=== PATIENT | male | born 1995 | race Caucasian/White ===

== ENCOUNTER 2019-10-04 16:07 | Emergency (ER) | payer OTHER ==
[2019-10-04] MEDS ORDERED: ACETAMINOPHEN 500 MG TAB ONE (16:32)
--- NOTE | 2019-10-04 17:18 | RAD REPORT ---
EXAM DESCRIPTION: RAD - Chest Single View - 10/04/2019 5:07 pm CLINICAL HISTORY: COUGH Chest pain. COMPARISON: No comparisons FINDINGS: Portable technique limits examination quality. The lungs are grossly clear. The heart is normal in size. No displaced fractures. IMPRESSION: No acute intrathoracic process suspected.
--- NOTE | 2019-10-04 17:21 | EDPHYS ---
Physician Documentation [facility] Name: Valente Tadeo Age: 23 yrs Sex: Male : 1995 Arrival Date: 10/04/2019 Time: 16:12 Bed 12 Private MD: ED Physician Morro Barragan HPI: 10/04 17:42 This 23 yrs old Male presents to ER via Ambulatory with complaints of Flu kdr Symptoms. 17:42 The patient or guardian reports cough, that is intermittent, described as mild, with kdr productive sputum, that is green. Onset: The symptoms/episode began/occurred gradually, 1 week(s) ago. Severity of symptoms: At their worst the symptoms were mild, in the emergency department the symptoms are unchanged. Modifying factors: The symptoms are alleviated by nothing, the symptoms are aggravated by nothing. Associated signs and symptoms: Pertinent positives: fever, Pertinent negatives: chest pain, diarrhea, nausea, rhinorrhea, sore throat, vomiting. The patient has not experienced similar symptoms in the past. The patient has been recently seen by a physician: Was seen at the [facility] last week and diagnosed with Flu - started on Tamiflu. continues to have fevers. Historical: - Allergies: 16:31 No Known Allergies; rv - Home Meds: 16:31 None [Active]; rv - PMHx: 16:31 None; rv - PSHx: 16:31 None; rv - Immunization history:: Adult Immunizations up to date. - Social history:: Smoking status: Patient/guardian denies using tobacco. - Ebola Screening: : No symptoms or risks identified at this time. ROS: 17:42 Constitutional: Negative for fever, chills, and weight loss, Eyes: Negative for injury, kdr pain, redness, and discharge, ENT: Negative for injury, pain, and discharge, Neck: Negative for injury, pain, and swelling, Cardiovascular: Negative for chest pain, palpitations, and edema, Abdomen/GI: Negative for abdominal pain, nausea, vomiting, diarrhea, and constipation, Back: Negative for injury and pain, : Negative for injury, bleeding, discharge, and swelling, MS/Extremity: Negative for injury and deformity, Skin: Negative for injury, rash, and discoloration, Neuro: Negative for headache, weakness, numbness, tingling, and seizure activity. Psych: Negative for depression, anxiety, suicide ideation, homicidal ideation, and hallucinations, Allergy/Immunology: Negative for hives, rash, and allergies, Endocrine: Negative for neck swelling, polydipsia, polyuria, polyphagia, and marked weight changes, Hematologic/Lymphatic: Negative for swollen nodes, abnormal bleeding, and unusual bruising. 17:42 Respiratory: Positive for cough, with green sputum, shortness of breath, Negative for dyspnea on exertion, hemoptysis, orthopnea, pleurisy, shortness of breath, wheezing. Exam: 17:42 Constitutional: This is a well developed, well nourished patient who is awake, alert, kdr and in no acute distress. Head/Face: Normocephalic, atraumatic. Eyes: Pupils equal round and reactive to light, extra-ocular motions intact. Lids and lashes normal. Conjunctiva and sclera are non-icteric and not injected. Cornea within normal limits. Periorbital areas with no swelling, redness, or edema. Neck: Trachea midline, no thyromegaly or masses palpated, and no cervical lymphadenopathy. Supple, full range of motion without nuchal rigidity, or vertebral point tenderness. No Meningismus. Chest/axilla: Normal chest wall appearance and motion. Nontender with no deformity. No lesions are appreciated. Cardiovascular: Regular rate and rhythm with a normal S1 and S2. No gallops, murmurs, or rubs. Normal PMI, no JVD. No pulse deficits. Respiratory: Lungs have equal breath sounds bilaterally, clear to auscultation and percussion. No rales, rhonchi or wheezes noted. No increased work of breathing, no retractions or nasal flaring. Abdomen/GI: Soft, non-tender, with normal bowel sounds. No distension or tympany. No guarding or rebound. No evidence of tenderness throughout. Back: No spinal tenderness. No costovertebral tenderness. Full range of motion. Skin: Warm, dry with normal turgor. Normal color with no rashes, no lesions, and no evidence of cellulitis. MS/ Extremity: Pulses equal, no cyanosis. Neurovascular intact. Full, normal range of motion. Neuro: Awake and alert, GCS 15, oriented to person, place, time, and situation. Cranial nerves II-XII grossly intact. Motor strength 5/5 in all extremities. Sensory grossly intact. Cerebellar exam normal. Normal gait. Psych: Awake, alert, with orientation to person, place and time. Behavior, mood, and affect are within normal limits. Vital Signs: 16:22 BP 133 / 79; Pulse 99; Resp 20; Temp 100.2; Pulse Ox 100% on R/A; Weight 63.5 kg; iw Height 5 ft. 10 in. (177.80 cm); Pain 0/10; 17:35 Temp 99.3(O); rv 16:22 Body Mass Index 20.09 (63.50 kg, 177.80 cm) iw MDM: 17:19 Patient medically screened. kdr 17:42 Data reviewed: vital signs, nurses notes, radiologic studies. Counseling: I had a kdr detailed discussion with the patient and/or guardian regarding: the historical points, exam findings, and any diagnostic results supporting the discharge/admit diagnosis, radiology results, the need for outpatient follow up. 10/04 16:29 Order name: CXR XRAY; Complete Time: 17:53 kdr Administered Medications: 16:31 Drug: Tylenol 1000 mg Route: PO; rv 17:35 Follow up: Temp 99.3 Oral; Response: Temperature is decreased rv 17:35 Drug: Zithromax 500 mg Route: PO; rv 17:35 Follow up: Response: Medication administered at discharge. rv 17:35 Drug: Tussionex Pennkinetic ER 5 ml Route: PO; rv 17:35 Follow up: Response: Medication administered at discharge. rv Disposition: 10/04/19 17:19 Discharged to Home. Impression: Cough, Acute upper respiratory infection, unspecified. - Condition is Stable. - Discharge Instructions: Upper Respiratory Infection, Adult, [id number], Cough, Adult, [id number], Fever, Adult, [id number]. - Prescriptions for Tussionex Pennkinetic ER 8- 10 mg/5 mL Oral Suspension, Sust. Release 12 hr - take 5 milliliter by ORAL route every 12 hours As needed; 120 milliliter. Zithromax Z- Bo 250 mg Oral Tablet - take 1 tablet by ORAL route once daily for 4 days; 4 tablet. - Medication Reconciliation Form, Thank You Letter, Antibiotic Education form. - Follow up: Private Physician; When: 2 - 3 days; Reason: If symptoms return, Further diagnostic work-up, Recheck today's complaints, Continuance of care, Re-evaluation by your physician. - Problem is an ongoing problem. - Symptoms are unchanged. Signatures: Dispatcher [employer] Morro Menard MD MD kdr Aman Arnett RN RN rv Corrections: (The following items were deleted from the chart) 17:36 17:19 10/04/2019 17:19 Discharged to Home. Impression: Cough; Acute upper respiratory rv infection, unspecified. Condition is Stable. Forms are Medication Reconciliation Form, Thank You Letter, Antibiotic Education, Prescription Opioid Use. Follow up: Private Physician; When: 2 - 3 days; Reason: If symptoms return, Further diagnostic work-up, Recheck today's complaints, Continuance of care, Re-evaluation by your physician. Problem is an ongoing problem. Symptoms are unchanged. kdr
--- NOTE | 2019-10-04 17:21 | ER ---
Nurse's Notes [facility] Name: Valente Tadeo Age: 23 yrs Sex: Male : 1995 Arrival Date: 10/04/2019 Time: 16:12 Bed 12 Private MD: Diagnosis: Cough;Acute upper respiratory infection, unspecified Presentation: 10/04 16:23 Presenting complaint: Patient states: diagnosed with flu Saturday and sent home with [facility]. still having fever today and shortness of breath. Transition of care: patient was not received from another setting of care. Onset of symptoms was October 04, 2019 at 08:00. Risk Assessment: Do you want to hurt yourself or someone else? Patient reports no desire to harm self or others. Initial Sepsis Screen: Does the patient meet any 2 criteria? No. Patient's initial sepsis screen is negative. Does the patient have a suspected source of infection? No. Patient's initial sepsis screen is negative. Care prior to arrival: None. 16:23 Method Of Arrival: Ambulatory 16:23 Acuity: PRERNA 4 Historical: - Allergies: 16:31 No Known Allergies; rv - Home Meds: 16:31 None [Active]; rv - PMHx: 16:31 None; rv - PSHx: 16:31 None; rv - Immunization history:: Adult Immunizations up to date. - Social history:: Smoking status: Patient/guardian denies using tobacco. - Ebola Screening: : No symptoms or risks identified at this time. Screenin:32 Abuse screen: Denies threats or abuse. Denies injuries from another. Nutritional rv screening: No deficits noted. Tuberculosis screening: No symptoms or risk factors identified. Fall Risk None identified. Assessment: 16:32 General: Appears in no apparent distress. Behavior is calm, cooperative. Pain: Denies rv pain. Neuro: Level of Consciousness is awake, alert, obeys commands, Oriented to person, place, time, situation. Cardiovascular: Patient's skin is warm and dry. Respiratory: Reports shortness of breath occassionaly Airway is patent. Derm: Skin is healthy with good turgor. Vital Signs: 16:22 BP 133 / 79; Pulse 99; Resp 20; Temp 100.2; Pulse Ox 100% on R/A; Weight 63.5 kg; iw Height 5 ft. 10 in. (177.80 cm); Pain 0/10; 17:35 Temp 99.3(O); rv 16:22 Body Mass Index 20.09 (63.50 kg, 177.80 cm) ED Course: 16:12 Patient arrived in ED. mr 16:15 Morro Barragan MD is Attending Physician. kdr 16:20 Aman Arnett, SHAMAR is Primary Nurse. rv 16:25 Triage completed. iw 16:32 Arm band placed on right wrist. rv 16:32 Patient has correct armband on for positive identification. Pulse ox on. rv 16:32 No provider procedures requiring assistance completed. Patient did not have IV access rv during this emergency room visit. 17:08 CXR XRAY In Process Unspecified. EDMS Administered Medications: 16:31 Drug: Tylenol 1000 mg Route: PO; rv 17:35 Follow up: Temp 99.3 Oral; Response: Temperature is decreased rv 17:35 Drug: Zithromax 500 mg Route: PO; rv 17:35 Follow up: Response: Medication administered at discharge. rv 17:35 Drug: Tussionex Pennkinetic ER 5 ml Route: PO; rv 17:35 Follow up: Response: Medication administered at discharge. rv Outcome: 17:19 Discharge ordered by . kdr 17:25 Discharged to home ambulatory. rv 17:25 Condition: good 17:25 Discharge instructions given to patient, Instructed on discharge instructions, follow up and referral plans. medication usage, Demonstrated understanding of instructions, follow-up care, medications, Prescriptions given X 2. 17:36 Patient left the ED. rv Signatures: Dispatcher [employer] EDMS Morro Barragan MD MD [facility] Karen mr Gretel Mares RN RN Aman Arnett RN RN rv
[2019-10-04] MEDS ORDERED: AZITHROMYCIN 250 MG TAB ONE (17:23)
[2019-10-04] MEDS ORDERED: HYDROCODONE/CHLORPHEN 5 ML/OSYR ONE (17:24)
[2019-10-04 17:42] VITALS: BP 133/79; O2SAT 100
[2019-10-04 17:43] VITALS: TEMP 99.3
== END 2019-10-04 17:36 | disposition home or self-care (01) ==
LOC: ER 16:07
DX: J06.9 Acute upper respiratory infection, unspecified (principal); R50.9 Fever, unspecified
CPT/HCPCS: 71045; 99284